=== PATIENT | female | born 1950 | race Caucasian/White ===

== ENCOUNTER 2024-07-22 11:11 | Inpatient (IN) | payer MEDICARE, OTHER ==
[~2024-07-22] VITALS: Ht 162.6 cm; Wt 103.0 kg
[2024-07-22] MEDS ORDERED: OXYCODONE/APAP 5-325 MG TABLET ONE (12:13)
[2024-07-22] MEDS: OXYCODONE/APAP 5-325 MG TABLET PO ONE (12:19)
[2024-07-22 12:22] LABS: BASOPHILS # (AUTO) 0.1 K/UL (0.0-0.2); BASOPHILS % (AUTO) 0.5 % (0.0-2.0); EOSINOPHILS # (AUTO) 0.1 K/uL (0.0-0.7); EOSINOPHILS % (AUTO) 0.4 % (0.0-7.0); HEMATOCRIT 37.4 % (31.2-41.9); HEMOGLOBIN 11.5 g/dL (10.9-14.3); LYMPHOCYTES # (AUTO) 1.5 K/uL (0.8-4.8); MEAN CORPUSCULAR HEMOGLOBIN 23.7 uug (24.7-32.8); MEAN CORPUSCULAR HGB CONC 31 g/dL (32.3-35.6); MONOCYTES # (AUTO) 0.9 K/uL (0.1-1.30); MONOCYTES % (AUTO) 5.2 % (0.0-11.0); NEUTROPHILS # (AUTO) 14.4 K/uL (1.8-8.9); NEUTROPHILS % (AUTO) 84.9 % (38.5-71.5); PLATELET COUNT (AUTO) 187 K/uL (179-408); RED BLOOD CELL COUNT(AUTO) 4.85 MIL/uL (3.63-4.92); RED CELL DISTRIBUTION WIDTH 18.8 % (12.3-17.7)
[2024-07-22 12:34] LABS: CALCIUM 8.8 mg/dL (8.5-10.1); CARBON DIOXIDE 22 mmol/L (21-32); CHLORIDE 101 mmol/L (98-107); CREATININE 1.2 mg/dL (0.6-1.3); GLUCOSE 99 mg/dL (74-106); POTASSIUM 3.7 mmol/L (3.5-5.1); SODIUM SERUM 138 mmol/L (136-145); UREA NITROGEN, BLOOD 25 mg/dL (7-18)
[2024-07-22 12:36] LABS: DIFFERENTIAL COMMENT 1
[2024-07-22 12:40] LABS: ALANINE AMINOTRANSFERASE 14 U/L (14-59); ALBUMIN 2.6 g/dL (3.4-5.0); ALKALINE PHOSPHATASE 76 U/L (50-136); ASPARTATE AMINOTRANSFERASE 30 U/L (15-37); BILIRUBIN,DIRECT 0.3 mg/dL (0.0-0.2); TOTAL PROTEIN, SERUM 6.5 g/dL (6.4-8.2)
[2024-07-22] MEDS: IV NS 1000 ML 1,000 ML IV ONE (12:45)
[2024-07-22 12:46] LABS: LACTIC ACID 3.1 mmol/L (0.4-2.0)
[2024-07-22] MEDS ORDERED: METRONIDAZOLE 500 MG/NS 100ML 100 ML IV ONE (12:55)
[2024-07-22] MEDS ORDERED: PIPERACILLIN/TAZOBACTAM/D5W 50 ML IV ONE (12:55)
[2024-07-22] MEDS: METRONIDAZOLE 500 MG/NS 100 ML PIGGYBACK IV ONE (12:55)
[2024-07-22] MEDS: PIPERACILLIN SODIUM/TAZOBACTAM 3.375 G in IV DEXTROSE 5% 50 ML IV ONE (13:14)
[2024-07-22] MEDS ORDERED: FAMO40TA7 PO (15:15)
[2024-07-22] MEDS ORDERED: EXEM25TA5 PO (15:15)
[2024-07-22] MEDS ORDERED: BUME1TAB8 PO (15:15)
[2024-07-22] MEDS ORDERED: LOSA100T31 PO (15:15)
[2024-07-22] MEDS ORDERED: METF-495 PO (15:15)
[2024-07-22] MEDS ORDERED: CARV12.52 PO (15:15)
[2024-07-22] MEDS ORDERED: CHLO25TA2 PO (15:15)
[2024-07-22] MEDS ORDERED: ASPI81TA31 PO (15:15)
[2024-07-22] MEDS ORDERED: SEMA1PEN SQ (15:15)
[2024-07-22] MEDS ORDERED: LINA145C PO (15:15)
[2024-07-22] MEDS ORDERED: DULO30CA2 PO (15:15)
[2024-07-22 18:25] LABS: *BILIRUBIN,URIN NEGATIVE (NEGATIVE); *CLARITY,URINE CLEAR (CLEAR); *COLOR,URINE YELLOW (YELLOW); *KETONES,URINE NEGATIVE (NEGATIVE); *PROTEIN,URINE 2+ (NEGATIVE); *UROBILINOGEN,URINE 0.2 E.U./dl (NORMAL); LEUKOCYTE ESTERASE ,URINE NEGATIVE (NEGATIVE); NITRITE, URINE NEGATIVE (NEGATIVE); UGLUCOSE 1+ (NEGATIVE)
[2024-07-22 18:29] LABS: *BLOOD, URINE TRACE (NEGATIVE)
[2024-07-22 18:41] LABS: BACTERIA,URINE NONE SEEN /HPF (NONE SEEN); RBC,URINE 0-3 /HPF (0-3); SQUAMOUS EPITHELIAL CELL,UR FEW /HPF (NONE SEEN); WBC,URINE 0-3 /HPF (0-3)
[2024-07-22] MEDS ORDERED: MAGNESIUM HYDROXIDE 30 ML LIQUID UDC PO PRN (20:30)
[2024-07-22] MEDS: ENOXAPARIN SODIUM 40 MG/0.4 ML DISP.SYRIN SQ SCH (20:30)
[2024-07-22] MEDS ORDERED: ONDANSETRON 4 MG/2 ML VIAL IV PRN (20:30)
[2024-07-22] MEDS ORDERED: ACETAMINOPHEN 325 MG TABLET PO PRN (20:30)
[2024-07-22] MEDS ORDERED: ENOXAPARIN SODIUM 40 MG/0.4 ML DISP.SYRIN SQ ONE (21:10)
[2024-07-22] MEDS ORDERED: VANCOMYCIN IV 200 ML ONE (23:43)
[2024-07-22] MEDS ORDERED: PIPERACILLIN/TAZO 4.5 GM VIAL IV ONE (23:43)
[2024-07-22] MEDS: IV LACTATED RINGERS SOLUTION 1,000 ML IV SCH (23:53)
[2024-07-23] MEDS: MORPHINE SULFATE 4 MG/1 ML DISP.SYRIN IV PRN (00:10)
[2024-07-23] MEDS: PIPERACILLIN SODIUM/TAZOBACTAM 4.5 G in IV DEXTROSE 5% 50 ML IV SCH (00:17)
[2024-07-23] MEDS: VANCOMYCIN IV 1,000 MG in IV NORMAL SALINE 250 ML IV ONE (00:21)
[2024-07-23] MEDS ORDERED: DEXTROSE 50% 50 ML DISP.SYRIN IV PRN (00:30)
[2024-07-23] MEDS: BLOOD SUGAR DIAGNOSTIC 1 EACH STRIP VI SCH (00:51)
[2024-07-23] MEDS: INSULIN REGULAR, HUMAN 300 UNITS/3 ML VIAL SQ PRN (01:08)
[2024-07-23 07:32] LABS: BASOPHILS # (AUTO) 0.1 K/UL (0.0-0.2); BASOPHILS % (AUTO) 0.4 % (0.0-2.0); EOSINOPHILS % (AUTO) 0.2 % (0.0-7.0); HEMATOCRIT 31.1 % (31.2-41.9); HEMOGLOBIN 9.8 g/dL (10.9-14.3); LYMPHOCYTES # (AUTO) 1.9 K/uL (0.8-4.8); MEAN CORPUSCULAR HEMOGLOBIN 23.8 uug (24.7-32.8); MEAN CORPUSCULAR HGB CONC 32 g/dL (32.3-35.6); MEAN CORPUSCULAR VOLUME 75.3 fL (75.5-95.3); MONOCYTES # (AUTO) 1.1 K/uL (0.1-1.30); NEUTROPHILS # (AUTO) 12.9 K/uL (1.8-8.9); NEUTROPHILS % (AUTO) 80.4 % (38.5-71.5); PLATELET COUNT (AUTO) 187 K/uL (179-408); RED BLOOD CELL COUNT(AUTO) 4.12 MIL/uL (3.63-4.92); RED CELL DISTRIBUTION WIDTH 18.6 % (12.3-17.7); WHITE BLOOD COUNT (AUTO) 16.1 K/uL (3.8-11.8)
[2024-07-23 07:54] LABS: DIFFERENTIAL COMMENT 1
[2024-07-23 08:03] LABS: CALCIUM 7.9 mg/dL (8.5-10.1); CARBON DIOXIDE 25 mmol/L (21-32); CHLORIDE 100 mmol/L (98-107); CHOLESTEROL 88 mg/dL (<200); CREATININE 1.3 mg/dL (0.6-1.3); GLUCOSE 229 mg/dL (74-106); HDL CHOLESTEROL 25 mg/dL (40-60); MAGNESIUM 1.6 mg/dL (1.8-2.4); POTASSIUM 3.4 mmol/L (3.5-5.1); SODIUM SERUM 134 mmol/L (136-145); TRIGLYCERIDES 134 MG/DL (30-150); UREA NITROGEN, BLOOD 20 mg/dL (7-18)
[2024-07-23] MEDS: INSULIN REGULAR, HUMAN 1000 UNIT/10 ML VIAL SQ PRN (08:27)
[2024-07-23 08:34] LABS: THYROID STIMULATING HORMONE 1.744 mIU/mL (0.358-3.740)
[2024-07-23] MEDS: ASPIRIN 81 MG TAB.CHEW PO SCH (08:37)
[2024-07-23] MEDS: BUMETANIDE 1 MG TABLET PO SCH (08:37)
[2024-07-23] MEDS: DULOXETINE 30 MG CAPSULE.DR PO SCH (08:37)
[2024-07-23] MEDS: LOSARTAN POTASSIUM 50 MG TABLET PO SCH (08:45)
[2024-07-23] MEDS ORDERED: CARVEDILOL 12.5 MG TABLET PO SCH (09:00)
[2024-07-23] MEDS ORDERED: METF-442 PO (10:01)
[2024-07-23] MEDS: CHLORTHALIDONE 25 MG TABLET PO SCH (10:04)
[2024-07-23] MEDS: CARVEDILOL 25 MG TABLET PO SCH (10:18)
[2024-07-23 11:36] VITALS: BP 90/51; TEMP 98.3; O2SAT 97
[2024-07-23] MEDS: PIPERACILLIN SODIUM/TAZOBACTAM 3.375 G in IV DEXTROSE 5% 100 ML IV SCH (13:55)
[2024-07-23] MEDS: VANCOMYCIN IV 1,250 MG in IV DEXTROSE 5% 250 ML IV SCH (14:06)
[2024-07-23 15:16] VITALS: BP 91/40; O2SAT 97
[2024-07-23 15:44] VITALS: TEMP 98.1; O2SAT 96
[2024-07-23] MEDS: IV NORMAL SALINE 500 ML IV ONE (15:46)
[2024-07-23 17:30] VITALS: BP 107/40; O2SAT 97
[2024-07-23] MEDS: MAGNESIUM OXIDE 400 MG TABLET PO ONE (17:54)
[2024-07-23] MEDS: POTASSIUM CHLORIDE 20 MEQ TAB.PRT.SR PO ONE (17:54)
[2024-07-23 19:00] VITALS: BP 115/45; TEMP 98.2; O2SAT 98
[2024-07-23] MEDS: INSULIN GLARGINE,HUM 300 UNITS/3 ML CARTRIDGE SQ SCH (21:00)
[2024-07-24] VITALS (12 sets, daily range): BP systolic 95–128; BP diastolic 27–51; TEMP 97.6–99.3; O2SAT 92–100
[2024-07-24] MEDS ORDERED: FENTANYL CITRATE 100 MCG/2 ML AMPUL ONE (04:46)
[2024-07-24] MEDS ORDERED: MIDAZOLAM HCL 2 MG/2 ML VIAL ONE (04:46)
[2024-07-24] MEDS ORDERED: VASOPRESSIN 20 UNIT/ML VIAL ONE (04:47)
[2024-07-24] MEDS ORDERED: LIDOCAINE 1%-EPI 1:100,000 20 ML VIAL ONE (05:29)
[2024-07-24] MEDS ORDERED: HYDROMORPHONE 2 MG/1 ML DISP.SYRIN ONE (06:05)
[2024-07-24] MEDS ORDERED: HYDROMORPHONE 1 MG/1 ML DISP.SYRIN IV PRN (06:30)
[2024-07-24] MEDS ORDERED: EPHEDRINE SULFATE 50 MG/ML AMPUL IV PRN (06:30)
[2024-07-24] MEDS: INSULIN LISPRO 300 UNIT/3 ML VIAL SQ SCH (07:30)
[2024-07-24] MEDS: IV NS 1000 ML 1,000 ML IV ONE (08:40)
[2024-07-24] MEDS: IV NS 1000 ML 1,000 ML IV SCH (10:03)
[2024-07-24 11:20] LABS: ABG BASE EXCESS -5.3 mmol/L (-2.0-3.0); ABG HCO3 20.3 mmol/L (21.0-28.0); ABG PH 7.324 (7.350-7.450); ABG PO2 97.5 mmHg (83.0-108.0); ABG SITE RIGHT RADIAL; ABG TOTAL HEMOGLOBIN 9.6 G/dL (12.0-16.0); COHb 0.7 % (0.5-1.5); MetHb 0.3 % (0.0-1.5); O2Hb 95.6 % (94.0-98.0)
[2024-07-24 12:30] LABS: BASOPHILS % (AUTO) 0.3 % (0.0-2.0); EOSINOPHILS # (AUTO) 0.1 K/uL (0.0-0.7); EOSINOPHILS % (AUTO) 1.1 % (0.0-7.0); HEMATOCRIT 28.2 % (31.2-41.9); HEMOGLOBIN 8.7 g/dL (10.9-14.3); LYMPHOCYTES # (AUTO) 1.7 K/uL (0.8-4.8); LYMPHOCYTES % (AUTO) 12.9 % (20.5-51.5); MEAN CORPUSCULAR HEMOGLOBIN 23.4 uug (24.7-32.8); MEAN CORPUSCULAR HGB CONC 31 g/dL (32.3-35.6); MEAN CORPUSCULAR VOLUME 75.8 fL (75.5-95.3); MONOCYTES # (AUTO) 1.1 K/uL (0.1-1.30); NEUTROPHILS # (AUTO) 10.2 K/uL (1.8-8.9); NEUTROPHILS % (AUTO) 77.7 % (38.5-71.5); PLATELET COUNT (AUTO) 183 K/uL (179-408); RED BLOOD CELL COUNT(AUTO) 3.73 MIL/uL (3.63-4.92); RED CELL DISTRIBUTION WIDTH 19.1 % (12.3-17.7); WHITE BLOOD COUNT (AUTO) 13.1 K/uL (3.8-11.8)
[2024-07-24 12:39] LABS: CALCIUM 7.6 mg/dL (8.5-10.1); CARBON DIOXIDE 24 mmol/L (21-32); CHLORIDE 106 mmol/L (98-107); CREATININE 1.3 mg/dL (0.6-1.3); GLUCOSE 188 mg/dL (74-106); MAGNESIUM 1.6 mg/dL (1.8-2.4); PHOSPHOROUS 3.5 mg/dL (2.5-4.9); POTASSIUM 3.7 mmol/L (3.5-5.1); SODIUM SERUM 138 mmol/L (136-145); UREA NITROGEN, BLOOD 21 mg/dL (7-18)
[2024-07-24 12:43] LABS: DIFFERENTIAL COMMENT 1
[2024-07-24] MEDS: INSULIN REGULAR, HUMAN 1000 UNIT/10 ML VIAL SQ SCH (17:00)
[2024-07-24] MEDS: IV LACTATED RINGERS SOLUTION 1,000 ML IV PRN (20:05)
[2024-07-25] VITALS (7 sets, daily range): BP systolic 97–146; BP diastolic 34–54; TEMP 96.9–98.9; O2SAT 90–96
[2024-07-25 07:28] LABS: BASOPHILS # (AUTO) 0.1 K/UL (0.0-0.2); BASOPHILS % (AUTO) 0.6 % (0.0-2.0); EOSINOPHILS # (AUTO) 0.2 K/uL (0.0-0.7); EOSINOPHILS % (AUTO) 2.3 % (0.0-7.0); HEMATOCRIT 27.9 % (31.2-41.9); HEMOGLOBIN 8.8 g/dL (10.9-14.3); LYMPHOCYTES # (AUTO) 1.8 K/uL (0.8-4.8); LYMPHOCYTES % (AUTO) 20.6 % (20.5-51.5); MEAN CORPUSCULAR HEMOGLOBIN 24.4 uug (24.7-32.8); MEAN CORPUSCULAR HGB CONC 32 g/dL (32.3-35.6); MEAN CORPUSCULAR VOLUME 77.2 fL (75.5-95.3); MONOCYTES # (AUTO) 0.5 K/uL (0.1-1.30); MONOCYTES % (AUTO) 5.5 % (0.0-11.0); NEUTROPHILS # (AUTO) 6.3 K/uL (1.8-8.9); PLATELET COUNT (AUTO) 184 K/uL (179-408); RED BLOOD CELL COUNT(AUTO) 3.61 MIL/uL (3.63-4.92); RED CELL DISTRIBUTION WIDTH 18.7 % (12.3-17.7); WHITE BLOOD COUNT (AUTO) 8.9 K/uL (3.8-11.8)
[2024-07-25 07:38] LABS: CALCIUM 7.5 mg/dL (8.5-10.1); CARBON DIOXIDE 24 mmol/L (21-32); CHLORIDE 102 mmol/L (98-107); GLUCOSE 321 mg/dL (74-106); MAGNESIUM 1.6 mg/dL (1.8-2.4); PHOSPHOROUS 2.3 mg/dL (2.5-4.9); POTASSIUM 3.5 mmol/L (3.5-5.1); SODIUM SERUM 139 mmol/L (136-145); UREA NITROGEN, BLOOD 14 mg/dL (7-18)
[2024-07-25 07:50] LABS: DIFFERENTIAL COMMENT 1
[2024-07-25] MEDS: MAGNESIUM OXIDE 400 MG TABLET PO ONE (14:54)
[2024-07-25] MEDS: NEUTRA PHOS PACKET PO ONE (18:30)
[2024-07-26 00:30] VITALS: BP 122/52; TEMP 98; O2SAT 95
[2024-07-26 06:25] LABS: BASOPHILS # (AUTO) 0.1 K/UL (0.0-0.2); BASOPHILS % (AUTO) 0.7 % (0.0-2.0); EOSINOPHILS # (AUTO) 0.2 K/uL (0.0-0.7); EOSINOPHILS % (AUTO) 3.1 % (0.0-7.0); HEMATOCRIT 28.7 % (31.2-41.9); LYMPHOCYTES # (AUTO) 2.1 K/uL (0.8-4.8); LYMPHOCYTES % (AUTO) 28.1 % (20.5-51.5); MEAN CORPUSCULAR HEMOGLOBIN 23.7 uug (24.7-32.8); MEAN CORPUSCULAR HGB CONC 31 g/dL (32.3-35.6); MEAN CORPUSCULAR VOLUME 75.8 fL (75.5-95.3); MONOCYTES # (AUTO) 0.6 K/uL (0.1-1.30); MONOCYTES % (AUTO) 7.9 % (0.0-11.0); NEUTROPHILS # (AUTO) 4.6 K/uL (1.8-8.9); NEUTROPHILS % (AUTO) 60.2 % (38.5-71.5); PLATELET COUNT (AUTO) 205 K/uL (179-408); RED BLOOD CELL COUNT(AUTO) 3.79 MIL/uL (3.63-4.92); RED CELL DISTRIBUTION WIDTH 18.5 % (12.3-17.7); WHITE BLOOD COUNT (AUTO) 7.6 K/uL (3.8-11.8)
[2024-07-26 07:02] LABS: DIFFERENTIAL COMMENT 1
[2024-07-26 07:27] LABS: CALCIUM 8.2 mg/dL (8.5-10.1); CARBON DIOXIDE 25 mmol/L (21-32); CHLORIDE 105 mmol/L (98-107); CREATININE 0.9 mg/dL (0.6-1.3); GLUCOSE 157 mg/dL (74-106); MAGNESIUM 1.3 mg/dL (1.8-2.4); PHOSPHOROUS 2.8 mg/dL (2.5-4.9); POTASSIUM 3.6 mmol/L (3.5-5.1); SODIUM SERUM 140 mmol/L (136-145); UREA NITROGEN, BLOOD 15 mg/dL (7-18)
[2024-07-26 07:57] VITALS: BP 132/47; TEMP 97.2; O2SAT 98
[2024-07-26] MEDS: MAGNESIUM OXIDE 400 MG TABLET PO ONE (10:11)
[2024-07-26 11:57] VITALS: BP 101/60; TEMP 97.9; O2SAT 94
[2024-07-26 16:03] VITALS: BP 93/35; TEMP 97.8; O2SAT 98
[2024-07-26 19:48] VITALS: BP 112/42; TEMP 97.3; O2SAT 90
[2024-07-27] VITALS (8 sets, daily range): BP systolic 91–138; BP diastolic 36–71; TEMP 97.2–98.3; O2SAT 93–97
[2024-07-27 07:44] LABS: BASOPHILS % (AUTO) 0.5 % (0.0-2.0); EOSINOPHILS # (AUTO) 0.2 K/uL (0.0-0.7); EOSINOPHILS % (AUTO) 2.2 % (0.0-7.0); HEMATOCRIT 28.4 % (31.2-41.9); HEMOGLOBIN 9.1 g/dL (10.9-14.3); LYMPHOCYTES # (AUTO) 2.1 K/uL (0.8-4.8); LYMPHOCYTES % (AUTO) 24.5 % (20.5-51.5); MEAN CORPUSCULAR HEMOGLOBIN 24.2 uug (24.7-32.8); MEAN CORPUSCULAR HGB CONC 32 g/dL (32.3-35.6); MEAN CORPUSCULAR VOLUME 75.8 fL (75.5-95.3); MONOCYTES # (AUTO) 0.6 K/uL (0.1-1.30); MONOCYTES % (AUTO) 7.2 % (0.0-11.0); NEUTROPHILS # (AUTO) 5.7 K/uL (1.8-8.9); NEUTROPHILS % (AUTO) 65.6 % (38.5-71.5); PLATELET COUNT (AUTO) 225 K/uL (179-408); RED BLOOD CELL COUNT(AUTO) 3.75 MIL/uL (3.63-4.92); RED CELL DISTRIBUTION WIDTH 18.6 % (12.3-17.7); WHITE BLOOD COUNT (AUTO) 8.6 K/uL (3.8-11.8)
[2024-07-27 07:55] LABS: DIFFERENTIAL COMMENT 1
[2024-07-27 08:17] LABS: CARBON DIOXIDE 31 mmol/L (21-32); CHLORIDE 100 mmol/L (98-107); GLUCOSE 333 mg/dL (74-106); MAGNESIUM 1.3 mg/dL (1.8-2.4); POTASSIUM 3.1 mmol/L (3.5-5.1); SODIUM SERUM 139 mmol/L (136-145); UREA NITROGEN, BLOOD 16 mg/dL (7-18)
[2024-07-27 08:28] LABS: CALCIUM 8.2 mg/dL (8.5-10.1)
[2024-07-27] MEDS: SODIUM HYPOCHLORITE 0.125% (QUARTER STRENGTH) 473 ML BOTTLE TP SCH (09:17)
[2024-07-27] MEDS ORDERED: VANCOMYCIN IV 1,250 MG in IV DEXTROSE 5% 250 ML IV SCH (10:30)
[2024-07-27] MEDS: POTASSIUM CHLORIDE 20 MEQ TAB.PRT.SR PO SCH (13:44)
[2024-07-27] MEDS ORDERED: MAGNESIUM OXIDE 400 MG TABLET PO ONE (14:00)
[2024-07-27] MEDS: MAGNESIUM OXIDE 400 MG TABLET PO SCH (14:19)
[2024-07-27] MEDS: GLUCERNA SHAKE 237 ML CAN PO SCH (17:05)
[2024-07-28] VITALS (9 sets, daily range): BP systolic 109–134; BP diastolic 34–46; TEMP 97.8–98.4; O2SAT 93–96
[2024-07-28] MEDS: VANCOMYCIN IV 1,250 MG in IV DEXTROSE 5% 250 ML IV SCH (10:28)
[2024-07-29 01:14] VITALS: O2SAT 96
[2024-07-29 04:40] VITALS: BP 111/44; TEMP 97.5; O2SAT 91
[2024-07-29 07:04] LABS: BASOPHILS # (AUTO) 0.1 K/UL (0.0-0.2); EOSINOPHILS # (AUTO) 0.2 K/uL (0.0-0.7); EOSINOPHILS % (AUTO) 2.1 % (0.0-7.0); HEMATOCRIT 30.6 % (31.2-41.9); HEMOGLOBIN 9.5 g/dL (10.9-14.3); LYMPHOCYTES # (AUTO) 2.3 K/uL (0.8-4.8); LYMPHOCYTES % (AUTO) 25.9 % (20.5-51.5); MEAN CORPUSCULAR HEMOGLOBIN 23.8 uug (24.7-32.8); MEAN CORPUSCULAR HGB CONC 31 g/dL (32.3-35.6); MEAN CORPUSCULAR VOLUME 76.4 fL (75.5-95.3); MONOCYTES # (AUTO) 0.5 K/uL (0.1-1.30); MONOCYTES % (AUTO) 5.5 % (0.0-11.0); NEUTROPHILS # (AUTO) 5.9 K/uL (1.8-8.9); NEUTROPHILS % (AUTO) 65.5 % (38.5-71.5); PLATELET COUNT (AUTO) 307 K/uL (179-408); RED BLOOD CELL COUNT(AUTO) 4.01 MIL/uL (3.63-4.92); RED CELL DISTRIBUTION WIDTH 18.4 % (12.3-17.7)
[2024-07-29 07:08] LABS: CALCIUM 8.5 mg/dL (8.5-10.1); CARBON DIOXIDE 34 mmol/L (21-32); CHLORIDE 103 mmol/L (98-107); CREATININE 0.9 mg/dL (0.6-1.3); GLUCOSE 148 mg/dL (74-106); POTASSIUM 3.1 mmol/L (3.5-5.1); SODIUM SERUM 144 mmol/L (136-145); UREA NITROGEN, BLOOD 12 mg/dL (7-18)
[2024-07-29 07:27] LABS: DIFFERENTIAL COMMENT 1
[2024-07-29 08:20] VITALS: BP 128/51; TEMP 97.6
[2024-07-29] MEDS: POTASSIUM CHLORIDE 20 MEQ TAB.PRT.SR PO ONE (12:12)
[2024-07-29] MEDS: MIRALAX 17 GM POWD.PACK PO ONE (12:53)
[2024-07-29 15:38] VITALS: BP 139/43; TEMP 98
[2024-07-29 19:00] VITALS: BP 96/37; TEMP 97.8; O2SAT 95
[2024-07-29 19:45] VITALS: BP 98/58; TEMP 97.8; O2SAT 95
[2024-07-30 05:14] LABS: BASOPHILS % (AUTO) 0.2 % (0.0-2.0); EOSINOPHILS # (AUTO) 0.2 K/uL (0.0-0.7); EOSINOPHILS % (AUTO) 2.2 % (0.0-7.0); HEMATOCRIT 30.6 % (31.2-41.9); HEMOGLOBIN 9.7 g/dL (10.9-14.3); LYMPHOCYTES # (AUTO) 2.7 K/uL (0.8-4.8); LYMPHOCYTES % (AUTO) 27.9 % (20.5-51.5); MEAN CORPUSCULAR HEMOGLOBIN 24.1 uug (24.7-32.8); MEAN CORPUSCULAR HGB CONC 32 g/dL (32.3-35.6); MEAN CORPUSCULAR VOLUME 76.1 fL (75.5-95.3); MONOCYTES # (AUTO) 0.5 K/uL (0.1-1.30); MONOCYTES % (AUTO) 5.1 % (0.0-11.0); NEUTROPHILS # (AUTO) 6.4 K/uL (1.8-8.9); NEUTROPHILS % (AUTO) 64.6 % (38.5-71.5); PLATELET COUNT (AUTO) 307 K/uL (179-408); RED BLOOD CELL COUNT(AUTO) 4.02 MIL/uL (3.63-4.92); RED CELL DISTRIBUTION WIDTH 18.8 % (12.3-17.7); WHITE BLOOD COUNT (AUTO) 9.8 K/uL (3.8-11.8)
[2024-07-30 05:26] LABS: DIFFERENTIAL COMMENT 1
[2024-07-30 05:29] LABS: CALCIUM 8.5 mg/dL (8.5-10.1); CARBON DIOXIDE 35 mmol/L (21-32); CHLORIDE 107 mmol/L (98-107); CREATININE 0.9 mg/dL (0.6-1.3); GLUCOSE 167 mg/dL (74-106); POTASSIUM 3.6 mmol/L (3.5-5.1); SODIUM SERUM 147 mmol/L (136-145); UREA NITROGEN, BLOOD 13 mg/dL (7-18)
[2024-07-30 06:00] VITALS: BP 127/45; TEMP 98; O2SAT 94
[2024-07-30 07:09] VITALS: BP 127/45; TEMP 98; O2SAT 94
[2024-07-30 10:44] VITALS: BP 103/41; TEMP 97.7; O2SAT 94
[2024-07-30] MEDS ORDERED: BISACODYL 10 MG SUPP.RECT RC PRN (14:00)
[2024-07-30] MEDS: MAGNESIUM HYDROXIDE 30 ML LIQUID UDC PO ONE (15:07)
[2024-07-30 15:36] VITALS: BP 129/42; TEMP 98; O2SAT 94
[2024-07-30 19:00] VITALS: BP 122/65; TEMP 98.4; O2SAT 95
[2024-07-30] MEDS: REMEDY ESSENTIAL ZINC PASTE 113 GM TP PRN (21:19)
[2024-07-31 06:00] VITALS: BP 139/40; TEMP 98.2; O2SAT 94
[2024-07-31 06:59] LABS: BASOPHILS % (AUTO) 0.4 % (0.0-2.0); EOSINOPHILS # (AUTO) 0.2 K/uL (0.0-0.7); EOSINOPHILS % (AUTO) 2.4 % (0.0-7.0); HEMATOCRIT 30.8 % (31.2-41.9); HEMOGLOBIN 9.7 g/dL (10.9-14.3); LYMPHOCYTES # (AUTO) 2.4 K/uL (0.8-4.8); LYMPHOCYTES % (AUTO) 27.2 % (20.5-51.5); MEAN CORPUSCULAR HEMOGLOBIN 24.1 uug (24.7-32.8); MEAN CORPUSCULAR HGB CONC 32 g/dL (32.3-35.6); MEAN CORPUSCULAR VOLUME 76.5 fL (75.5-95.3); MONOCYTES # (AUTO) 0.5 K/uL (0.1-1.30); NEUTROPHILS # (AUTO) 5.6 K/uL (1.8-8.9); PLATELET COUNT (AUTO) 286 K/uL (179-408); RED BLOOD CELL COUNT(AUTO) 4.02 MIL/uL (3.63-4.92); RED CELL DISTRIBUTION WIDTH 18.8 % (12.3-17.7); WHITE BLOOD COUNT (AUTO) 8.7 K/uL (3.8-11.8)
[2024-07-31 07:10] LABS: DIFFERENTIAL COMMENT 1
[2024-07-31 07:39] LABS: CALCIUM 8.6 mg/dL (8.5-10.1); CARBON DIOXIDE 34 mmol/L (21-32); CHLORIDE 103 mmol/L (98-107); GLUCOSE 161 mg/dL (74-106); POTASSIUM 3.4 mmol/L (3.5-5.1); SODIUM SERUM 141 mmol/L (136-145); UREA NITROGEN, BLOOD 14 mg/dL (7-18)
[2024-07-31 07:56] VITALS: BP 126/37; TEMP 98.1
[2024-07-31] MEDS: VANCOMYCIN IV 1,250 MG in IV DEXTROSE 5% 250 ML IV SCH (08:32)
[2024-07-31] MEDS: MIRALAX 17 GM POWD.PACK PO SCH (08:52)
[2024-07-31] MEDS: POTASSIUM CHLORIDE 20 MEQ TAB.PRT.SR PO ONE (10:29)
[2024-07-31] MEDS ORDERED: DULO30CA2 PO (11:00)
[2024-07-31] MEDS ORDERED: SODI473S8 TP (11:00)
[2024-07-31] MEDS ORDERED: PIPE3.379 IV (11:00)
[2024-07-31] MEDS ORDERED: Blood Sugar Diagnostic VI (11:00)
[2024-07-31] MEDS ORDERED: ENOX40DI SQ (11:00)
[2024-07-31] MEDS ORDERED: LOSA50TA3 PO (11:00)
[2024-07-31] MEDS ORDERED: NUT.237L36 PO (11:00)
[2024-07-31] MEDS ORDERED: Insulin Glargine,Hum SQ (11:00)
[2024-07-31] MEDS ORDERED: CARV25TA2 PO (11:00)
[2024-07-31] MEDS ORDERED: MAGN400O6 PO (11:00)
[2024-07-31] MEDS ORDERED: VANC1.257 IV (11:00)
[2024-07-31] MEDS ORDERED: BISA10SU12 RC (11:00)
[2024-07-31] MEDS ORDERED: ASPI81TA31 PO (11:00)
[2024-07-31] MEDS ORDERED: INSU100V28 SQ ×2 (11:00)
[2024-07-31] MEDS ORDERED: CHLO25TA2 PO (11:00)
[2024-07-31] MEDS ORDERED: POLY17PO4 PO (11:00)
[2024-07-31] MEDS ORDERED: BUME1TAB8 PO (11:00)
[2024-07-31 11:08] VITALS: BP 130/40; TEMP 97.8; O2SAT 94
[2024-07-31 15:31] VITALS: BP 116/34; TEMP 98.2; O2SAT 95
[2024-07-31 17:00] VITALS: BP 116/34
== END 2024-07-31 19:25 | DRG 853 ==
LOC: ER 11:11 → TRANSITION 19:34 → MEDSURG3 22:25 → TELE3 07-24 10:25 → MEDSURG3 07-28 10:11
PROVIDERS: ADMIT Nurse Practitioner Acute Care; ATTEND Nurse Practitioner Acute Care
PROC: 0U9M0ZZ Drainage of Vulva, Open Approach (ICD-10-PCS; principal; 2024-07-24)
PROC: 0JBC0ZZ Excision of Pelvic Region Subcutaneous Tissue and Fascia, Open Approach (ICD-10-PCS; 2024-07-24)
PROC: 05HD33Z Insertion of Infusion Device into Right Cephalic Vein, Percutaneous Approach (ICD-10-PCS; 2024-07-27)
DX: A41.9 Sepsis, unspecified organism (principal); A48.0 Gas gangrene; R65.21 Severe sepsis with septic shock; L03.315 Cellulitis of perineum; E87.20 Acidosis, unspecified; E44.0 Moderate protein-calorie malnutrition; I50.32 Chronic diastolic (congestive) heart failure; E11.52 Type 2 diabetes mellitus with diabetic peripheral angiopathy with gangrene; L03.314 Cellulitis of groin; E66.01 Morbid (severe) obesity due to excess calories; E11.65 Type 2 diabetes mellitus with hyperglycemia; E88.09 Other disorders of plasma-protein metabolism, not elsewhere classified; I11.0 Hypertensive heart disease with heart failure; F32.A Depression, unspecified; K59.00 Constipation, unspecified; I25.10 Atherosclerotic heart disease of native coronary artery without angina pectoris; Z95.5 Presence of coronary angioplasty implant and graft; Z68.36 Body mass index [BMI] 36.0-36.9, adult; Z79.811 Long term (current) use of aromatase inhibitors; Z79.82 Long term (current) use of aspirin; Z79.84 Long term (current) use of oral hypoglycemic drugs; R26.2 Difficulty in walking, not elsewhere classified
CPT/HCPCS: 36415; 36600; 71045; 72192; 83605; 83735; 84100; 84443; 85025; 87040; 93307; 97535-GO-CO; A4649; A4663; G0378; J1171; J1650; J1815; J2250; J2270; J2543; J3010; J3370; J3490; J7040; J7050; J7120